=== PATIENT | male | born 1975 | race Caucasian/White ===

== ENCOUNTER 2016-08-09 12:09 | Emergency (ER) | payer MEDICARE, OTHER ==
[~2016-08-09] VITALS: Ht 177.8 cm; Wt 75.6 kg
[~2016-08-09 12:09] MED LIST: ACYCLOVIR800 MG PO; ANUCORT-HC25 MG RE; ANUSOL HC25 MG RE; BACTRIM DS1 TAB OR; BACTRIM DS1 TAB PO; BACTROBAN TOP; CIPROFLOXACN500 MG PO; CORTISPORIN OTI10 M2 AD; DEBROX6.5 % OT; DOXYCYCL HYC100 M4 PO; FIORICET PO; FLEXERIL OR; HYDROXYZ HCL25 MG OR; LORTAB 1010 MG PO; LORTAB5 OR; NAPROSYN375 MG PO; NAPROSYN500 MG OR; NAPROSYN500 MG PO; NAPROXEN375 MG PO; NO HOME MEDS; NO MEDS; POLYTRIM AD; PREPARATION RE; PRILOSEC20 MG OR; SMZ/TMP DS1 TAB PO; TORADOL PO; TYLENOL325 MG OR; ULTRAM50 M1 PO
[2016-08-09] MEDS ORDERED: MOTRIN800 MG PO (12:42)
[2016-08-09 13:16] VITALS: BP 111/75
== END 2016-08-09 13:21 | disposition home or self-care (01) ==
LOC: ED 12:09
DX: M25.541 Pain in joints of right hand (principal); F17.210 Nicotine dependence, cigarettes, uncomplicated; Z86.14 Personal history of Methicillin resistant Staphylococcus aureus infection

== ENCOUNTER 2016-10-28 08:45 | Emergency (ER) | payer MEDICARE, OTHER ==
[~2016-10-28] VITALS: Ht 177.8 cm; Wt 70.0 kg
[~2016-10-28 08:45] MED LIST changes: +MOTRIN800 MG PO
[2016-10-28] MEDS ORDERED: MOTRIN800 MG PO (09:01)
[2016-10-28 09:10] VITALS: BP 123/88
== END 2016-10-28 09:23 | disposition home or self-care (01) ==
LOC: ED 08:45
DX: S43.402A Unspecified sprain of left shoulder joint, initial encounter (principal); X50.0XXA Overexertion from strenuous movement or load, initial encounter; Y93.89 Activity, other specified; Y92.009 Unspecified place in unspecified non-institutional (private) residence as the place of occurrence of the external cause

== ENCOUNTER 2016-12-25 19:47 | Emergency (ER) | payer MEDICARE, OTHER ==
[~2016-12-25] VITALS: Ht 177.8 cm; Wt 79.0 kg
[2016-12-25] MEDS ORDERED: ULTRAM50 MG PO (20:22)
[2016-12-25 20:37] VITALS: BP 131/77
== END 2016-12-25 20:42 | disposition home or self-care (01) ==
LOC: ED 19:47
DX: S76.912A Strain of unspecified muscles, fascia and tendons at thigh level, left thigh, initial encounter (principal); M41.9 Scoliosis, unspecified; F17.210 Nicotine dependence, cigarettes, uncomplicated; X58.XXXA Exposure to other specified factors, initial encounter; Z86.14 Personal history of Methicillin resistant Staphylococcus aureus infection

== ENCOUNTER 2017-03-06 17:00 | Emergency (ER) | payer MEDICARE, OTHER ==
[~2017-03-06] VITALS: Ht 177.8 cm; Wt 68.0 kg
[~2017-03-06 17:00] MED LIST changes: +ULTRAM50 MG PO
[2017-03-06] MEDS ORDERED: ULTRAM50 MG PO (19:40)
[2017-03-06] MEDS ORDERED: ORPHENADRINE100 MG PO (19:40)
[2017-03-06 19:42] VITALS: BP 124/81
== END 2017-03-06 19:30 | disposition home or self-care (01) ==
LOC: ED 17:00
DX: R07.81 Pleurodynia (principal); M41.9 Scoliosis, unspecified; F17.290 Nicotine dependence, other tobacco product, uncomplicated; Z86.14 Personal history of Methicillin resistant Staphylococcus aureus infection

== ENCOUNTER 2017-07-11 11:03 | Emergency (ER) | payer MEDICARE, OTHER ==
[~2017-07-11] VITALS: Ht 177.8 cm; Wt 74.2 kg
[~2017-07-11 11:03] MED LIST changes: +ORPHENADRINE100 MG PO
[2017-07-11 12:13] LABS: INFLUENZA A NONE DETECTED (NONE DETECT); INFLUENZA B NONE DETECTED (NONE DETECT)
[2017-07-11 12:15] VITALS: BP 133/80
[2017-07-11] MEDS ORDERED: AMOXICILLIN500 MG PO (12:16)
== END 2017-07-11 12:15 | disposition home or self-care (01) ==
LOC: ED 11:03
PROVIDERS: Emergency Medicine
DX: J02.0 Streptococcal pharyngitis (principal); F17.210 Nicotine dependence, cigarettes, uncomplicated

== ENCOUNTER 2017-10-17 08:30 | Emergency (ER) | payer MEDICARE, OTHER ==
[~2017-10-17] VITALS: Ht 177.8 cm; Wt 75.0 kg
[~2017-10-17 08:30] MED LIST changes: +AMOXICILLIN500 MG PO
[2017-10-17] MEDS ORDERED: DOXYCYC MONO100 M1 PO (10:22)
[2017-10-17 10:31] VITALS: BP 139/76
== END 2017-10-17 10:37 | disposition home or self-care (01) ==
LOC: ED 08:30
DX: I83.12 Varicose veins of left lower extremity with inflammation (principal); F17.210 Nicotine dependence, cigarettes, uncomplicated

== ENCOUNTER 2018-03-08 15:01 | Emergency (ER) | payer MEDICARE, OTHER ==
[~2018-03-08] VITALS: Ht 177.8 cm; Wt 60.0 kg
[~2018-03-08 15:01] MED LIST changes: +DOXYCYC MONO100 M1 PO
[2018-03-08] MEDS ORDERED: AMOXICILLIN500 MG PO (15:48)
[2018-03-08] MEDS ORDERED: NAPROSYN500 MG PO (15:48)
[2018-03-08 15:55] VITALS: BP 131/76
== END 2018-03-08 15:55 | disposition home or self-care (01) ==
LOC: ED 15:01
DX: S90.122A Contusion of left lesser toe(s) without damage to nail, initial encounter (principal); S90.32XA Contusion of left foot, initial encounter; W22.8XXA Striking against or struck by other objects, initial encounter; Y93.01 Activity, walking, marching and hiking; Y92.009 Unspecified place in unspecified non-institutional (private) residence as the place of occurrence of the external cause

== ENCOUNTER 2018-12-25 15:29 | Emergency (ER) | payer MEDICARE, OTHER ==
[~2018-12-25] VITALS: Ht 177.8 cm; Wt 68.0 kg
[2018-12-25 15:56] LABS: HEMATOCRIT 42.6 % (39.0-50.0); IMMATURE GRANULOCYTES 0.4 % (0.0-5.0); MEAN CELL VOLUME 95.9 fL CALC (80.0-100.0); MEAN CORPUSCULAR HGB 31.5 pG CALC (26.0-32.0); MEAN CORPUSCULAR HGB CONC 32.9 g/L CALC (32.0-36.0); NEUT# 7.92 thou/uL (1.82-7.42); RED BLOOD COUNT 4.44 mill/uL (4.70-6.10); RED CELL DISTRI WIDTH 13.8 % (11.5-15.5)
[2018-12-25 16:08] LABS: ALBUMIN 4.4 g/dL (3.2-5.0); ALKALINE PHOSPHATASE 75 u/l (38-126); ANION GAP 14 (6-22 (CALC)); BILIRUBIN, TOTAL 0.6 mg/dL (0.0-1.4); BUN 9 mg/dL (9-20); BUN/CREATININE RATIO 11 (12-20 (CALC)); CARBON DIOXIDE 26 mmol/l (22-30); CHLORIDE 105 mmol/l (95-108); CREATININE 0.8 mg/dL (0.7-1.3); GFR > 60 ML/MIN (>=60 (CALC)); GFR FOR AFR.AMER. > 60 ML/MIN (>=60 (CALC)); POTASSIUM 4.3 mmol/l (3.5-5.1); SGOT/AST 22 u/l (17-59); SODIUM 141 mmol/l (137-146); TOTAL PROTEIN 7.8 g/dL (6.3-8.2)
[2018-12-25 16:16] LABS: MYOGLOBIN 22 ng/mL (0 - 121)
[2018-12-25 17:30] VITALS: BP 123/88
[2018-12-25] MEDS ORDERED: NAPROXEN500 MG PO (20:42)
== END 2018-12-25 17:40 | disposition home or self-care (01) ==
LOC: ED 15:29
PROVIDERS: Family Medicine
DX: R07.9 Chest pain, unspecified (principal); F17.200 Nicotine dependence, unspecified, uncomplicated

== ENCOUNTER 2018-12-25 19:22 | Emergency (ER) | payer MEDICARE, OTHER ==
[~2018-12-25] VITALS: Ht 177.8 cm; Wt 75.0 kg
[2018-12-25 20:25] LABS: MYOGLOBIN 26 ng/mL (0 - 121)
[2018-12-25] MEDS ORDERED: NAPROXEN500 MG PO (20:42)
[2018-12-25 21:00] VITALS: BP 135/74
== END 2018-12-25 21:00 | disposition home or self-care (01) ==
LOC: ED 19:22
PROVIDERS: Emergency Medicine
DX: R07.89 Other chest pain (principal); F17.200 Nicotine dependence, unspecified, uncomplicated

== ENCOUNTER 2019-03-14 15:19 | Emergency (ER) | payer MEDICARE, MEDICAID ==
[~2019-03-14] VITALS: Ht 177.8 cm; Wt 70.0 kg
[~2019-03-14 15:19] MED LIST changes: +NAPROXEN500 MG PO
[2019-03-14 16:00] LABS: HEMATOCRIT 45.3 % (39.0-50.0); HEMOGLOBIN 14.7 g/dl (14.0-18.0); IMMATURE GRANULOCYTES 0.4 % (0.0-5.0); MEAN CELL VOLUME 95.8 fL CALC (80.0-100.0); MEAN CORPUSCULAR HGB 31.1 pG CALC (26.0-32.0); MEAN CORPUSCULAR HGB CONC 32.5 g/L CALC (32.0-36.0); NEUT# 5.76 thou/uL (1.82-7.42); RED BLOOD COUNT 4.73 mill/uL (4.70-6.10)
[2019-03-14 16:07] LABS: ALBUMIN 4.5 g/dL (3.2-5.0); ALKALINE PHOSPHATASE 86 u/l (38-126); ANION GAP 13 (6-22 (CALC)); BILIRUBIN, TOTAL 0.7 mg/dL (0.0-1.4); BUN 9 mg/dL (9-20); BUN/CREATININE RATIO 11 (12-20 (CALC)); CARBON DIOXIDE 28 mmol/l (22-30); CHLORIDE 102 mmol/l (95-108); CREATININE 0.8 mg/dL (0.7-1.3); GFR > 60 ML/MIN (>=60 (CALC)); GFR FOR AFR.AMER. > 60 ML/MIN (>=60 (CALC)); POTASSIUM 3.9 mmol/l (3.5-5.1); SGOT/AST 33 u/l (17-59); SODIUM 139 mmol/l (137-146); TOTAL PROTEIN 8.5 g/dL (6.3-8.2)
[2019-03-14 16:19] LABS: MYOGLOBIN 23 ng/mL (0 - 121)
[2019-03-14 16:55] VITALS: BP 130/78
== END 2019-03-14 16:55 | disposition home or self-care (01) ==
LOC: ED 15:19
PROVIDERS: Family Medicine
DX: R07.9 Chest pain, unspecified (principal); F17.210 Nicotine dependence, cigarettes, uncomplicated

== ENCOUNTER 2019-04-24 00:01 | Emergency (ER) | payer MEDICARE, MEDICAID ==
[~2019-04-24] VITALS: Ht 177.8 cm; Wt 73.0 kg
[2019-04-24 00:15] VITALS: BP 128/82
== END 2019-04-24 00:23 | disposition left against medical advice (07) ==
LOC: ED 00:01 → LWOBS 00:23
DX: Z01.30 Encounter for examination of blood pressure without abnormal findings (principal); Z53.21 Procedure and treatment not carried out due to patient leaving prior to being seen by health care provider

== ENCOUNTER 2019-05-30 | Emergency (ER) | payer MEDICARE, MEDICAID ==
[2019-05-30] MEDS ORDERED: VOLTAREN - GENE75 MG PO (19:17)
== END 2019-05-30 19:25 | disposition home or self-care (01) ==
DX: M19.032 Primary osteoarthritis, left wrist (principal); S39.012A Strain of muscle, fascia and tendon of lower back, initial encounter; F17.200 Nicotine dependence, unspecified, uncomplicated; X58.XXXA Exposure to other specified factors, initial encounter

== ENCOUNTER 2019-06-10 | Emergency (ER) | payer MEDICARE, MEDICAID ==
[~2019-06-10] MED LIST changes: +VOLTAREN - GENE75 MG PO
[2019-06-10 09:53] LABS: HEMOGLOBIN 15.4 g/dl (14.0-18.0); IMMATURE GRANULOCYTES 0.3 % (0.0-5.0); MEAN CELL VOLUME 94.9 fL CALC (80.0-100.0); MEAN CORPUSCULAR HGB 31.1 pG CALC (26.0-32.0); MEAN CORPUSCULAR HGB CONC 32.8 g/L CALC (32.0-36.0); NEUT# 3.99 thou/uL (1.82-7.42); RED BLOOD COUNT 4.95 mill/uL (4.70-6.10); RED CELL DISTRI WIDTH 13.5 % (11.5-15.5)
[2019-06-10 10:09] LABS: ALBUMIN 4.1 g/dL (3.2-5.0); ALKALINE PHOSPHATASE 58 u/l (38-126); ANION GAP 11 (6-22 (CALC)); BILIRUBIN, TOTAL 0.6 mg/dL (0.0-1.4); BUN 14 mg/dL (9-20); BUN/CREATININE RATIO 20 (12-20 (CALC)); CARBON DIOXIDE 28 mmol/l (22-30); CHLORIDE 103 mmol/l (95-108); CREATININE 0.7 mg/dL (0.7-1.3); GFR > 60 ML/MIN (>=60 (CALC)); GFR FOR AFR.AMER. > 60 ML/MIN (>=60 (CALC)); LIPASE 57 u/l (23-300); SGOT/AST 22 u/l (17-59); SODIUM 137 mmol/l (137-146); TOTAL PROTEIN 7.6 g/dL (6.3-8.2)
[2019-06-10 10:31] LABS: POTASSIUM 4.9 mmol/l (3.5-5.1)
[2019-06-10] MEDS ORDERED: IBUPROFEN600 MG PO (11:27)
== END 2019-06-10 11:38 | disposition home or self-care (01) ==
DX: R07.89 Other chest pain (principal); F17.210 Nicotine dependence, cigarettes, uncomplicated

== ENCOUNTER 2019-07-15 | Emergency (ER) | payer MEDICARE, MEDICAID ==
[~2019-07-15] MED LIST changes: +IBUPROFEN600 MG PO
[2019-07-15] MEDS ORDERED: DICLOFENAC SODI75 MG PO (10:52)
== END 2019-07-15 12:40 | disposition home or self-care (01) ==
DX: M25.532 Pain in left wrist (principal); F17.210 Nicotine dependence, cigarettes, uncomplicated

== ENCOUNTER 2020-06-08 08:01 | Emergency (ER) | payer MEDICARE, MEDICAID ==
[~2020-06-08] VITALS: Ht 177.8 cm; Wt 68.0 kg
[~2020-06-08 08:01] MED LIST changes: +DICLOFENAC SODI75 MG PO
[2020-06-08 08:37] LABS: HEMATOCRIT 46.2 % (39.0-50.0); IMMATURE GRANULOCYTES 0.4 % (0.0-5.0); MEAN CELL VOLUME 96.5 fL CALC (80.0-100.0); MEAN CORPUSCULAR HGB 31.3 pG CALC (26.0-32.0); MEAN CORPUSCULAR HGB CONC 32.5 g/dL CAL (32.0-36.0); NEUT# 4.84 thou/uL (1.82-7.42); RED BLOOD COUNT 4.79 mill/uL (4.70-6.10); RED CELL DISTRI WIDTH 13.6 % (11.5-15.5)
[2020-06-08 09:16] LABS: ALBUMIN 4.1 g/dL (3.2-5.0); ALKALINE PHOSPHATASE 72 u/l (38-126); ANION GAP 10 (6-22 (CALC)); BILIRUBIN, TOTAL 0.6 mg/dL (0.0-1.4); BUN 13 mg/dL (9-20); BUN/CREATININE RATIO 15 (12-20 (CALC)); CARBON DIOXIDE 27 mmol/l (22-30); CHLORIDE 106 mmol/l (95-108); CREATININE 0.9 mg/dL (0.7-1.3); GFR > 60 ML/MIN (>=60 (CALC)); GFR FOR AFR.AMER. > 60 ML/MIN (>=60 (CALC)); LIPASE 63 u/l (23-300); SGOT/AST 19 u/l (17-59); SODIUM 139 mmol/l (137-146); TOTAL PROTEIN 7.2 g/dL (6.3-8.2)
[2020-06-08 09:17] LABS: PROTHROMBIN TIME 9.6 SECONDS (9.0-12.5)
[2020-06-08 09:19] LABS: POTASSIUM 3.9 mmol/l (3.5-5.1)
[2020-06-08] MEDS ORDERED: IBUPROFEN600 MG PO (10:07)
[2020-06-08 10:31] VITALS: BP 127/80
== END 2020-06-08 10:40 | disposition home or self-care (01) ==
LOC: ED 08:01
PROVIDERS: Student in an Organized Health Care Education/Training Program
DX: R07.9 Chest pain, unspecified (principal); F17.210 Nicotine dependence, cigarettes, uncomplicated

== ENCOUNTER 2020-07-10 15:46 | Emergency (ER) | payer MEDICARE, MEDICAID ==
[~2020-07-10] VITALS: Ht 177.8 cm; Wt 68.0 kg
[2020-07-10] MEDS ORDERED: KEFLEX500 MG PO (16:34)
[2020-07-10] MEDS ORDERED: BACTRIM DS1 TAB PO (16:34)
[2020-07-10 16:48] VITALS: BP 127/81
== END 2020-07-10 16:55 | disposition home or self-care (01) ==
LOC: ED 15:46
DX: L02.411 Cutaneous abscess of right axilla (principal); F17.210 Nicotine dependence, cigarettes, uncomplicated; Z86.14 Personal history of Methicillin resistant Staphylococcus aureus infection

== ENCOUNTER 2020-07-17 18:23 | Emergency (ER) | payer MEDICARE, MEDICAID ==
[~2020-07-17] VITALS: Ht 177.8 cm; Wt 75.0 kg
[~2020-07-17 18:23] MED LIST changes: +KEFLEX500 MG PO
[2020-07-17 19:23] VITALS: BP 122/75
== END 2020-07-17 19:48 | disposition home or self-care (01) ==
LOC: ED 18:23
PROC: 0HQ9XZZ Repair Perineum Skin, External Approach (ICD-10-PCS; principal; 2020-07-17)
DX: S30.813A Abrasion of scrotum and testes, initial encounter (principal); F17.210 Nicotine dependence, cigarettes, uncomplicated; X58.XXXA Exposure to other specified factors, initial encounter; Y93.E1 Activity, personal bathing and showering; Y92.002 Bathroom of unspecified non-institutional (private) residence as the place of occurrence of the external cause

== ENCOUNTER 2020-10-09 09:35 | Emergency (ER) | payer MEDICARE, MEDICAID ==
[~2020-10-09] VITALS: Ht 177.8 cm; Wt 68.0 kg
[2020-10-09] MEDS ORDERED: KEFLEX500 MG PO (10:53)
[2020-10-09 11:14] VITALS: BP 144/90
[2020-10-15] MEDS ORDERED: SULFAMETHOXAZOL1 TA1 PO (09:09)
== END 2020-10-09 11:21 | disposition home or self-care (01) ==
LOC: ED 09:35
PROC: 0H95XZZ Drainage of Chest Skin, External Approach (ICD-10-PCS; principal; 2020-10-09)
DX: L72.9 Follicular cyst of the skin and subcutaneous tissue, unspecified (principal); B95.7 Other staphylococcus as the cause of diseases classified elsewhere; F17.210 Nicotine dependence, cigarettes, uncomplicated; Z86.14 Personal history of Methicillin resistant Staphylococcus aureus infection

== ENCOUNTER 2020-10-10 12:34 | Emergency (ER) | payer MEDICARE, MEDICAID ==
[~2020-10-10] VITALS: Ht 177.8 cm; Wt 68.1 kg
[2020-10-10 13:11] VITALS: BP 139/71
--- NOTE | 2020-10-11 10:07 | NUR ---
Left message with patient about need to change antibiotics, from keflex to bactrim ds bid x 10 days, new order ok'd by .
[2020-10-15] MEDS ORDERED: SULFAMETHOXAZOL1 TA1 PO (09:09)
== END 2020-10-10 13:17 | disposition home or self-care (01) ==
LOC: ED 12:34
DX: Z48.01 Encounter for change or removal of surgical wound dressing (principal)

== ENCOUNTER 2020-10-11 11:21 | Emergency (ER) | payer MEDICARE, MEDICAID ==
[~2020-10-11] VITALS: Ht 177.8 cm; Wt 67.7 kg
[2020-10-11 12:58] VITALS: BP 110/70
[2020-10-15] MEDS ORDERED: SULFAMETHOXAZOL1 TA1 PO (09:09)
== END 2020-10-11 12:59 | disposition home or self-care (01) ==
LOC: ED 11:21
DX: Z48.01 Encounter for change or removal of surgical wound dressing (principal); F17.210 Nicotine dependence, cigarettes, uncomplicated; Z86.14 Personal history of Methicillin resistant Staphylococcus aureus infection

== ENCOUNTER 2020-10-13 10:38 | Emergency (ER) | payer MEDICARE, MEDICAID ==
[~2020-10-13] VITALS: Ht 177.8 cm; Wt 73.0 kg
[2020-10-13 11:07] VITALS: BP 137/81
[2020-10-15] MEDS ORDERED: SULFAMETHOXAZOL1 TA1 PO (09:09)
== END 2020-10-13 11:10 | disposition home or self-care (01) ==
LOC: ED 10:38
DX: Z48.01 Encounter for change or removal of surgical wound dressing (principal); F17.200 Nicotine dependence, unspecified, uncomplicated; Z86.14 Personal history of Methicillin resistant Staphylococcus aureus infection

== ENCOUNTER 2020-10-18 20:09 | Emergency (ER) | payer MEDICARE, MEDICAID ==
[~2020-10-18] VITALS: Ht 177.8 cm; Wt 80.0 kg
[~2020-10-18 20:09] MED LIST changes: +SULFAMETHOXAZOL1 TA1 PO
[2020-10-18 20:34] VITALS: BP 127/83
== END 2020-10-18 20:42 | disposition home or self-care (01) ==
LOC: ED 20:09
DX: Z48.01 Encounter for change or removal of surgical wound dressing (principal); F17.210 Nicotine dependence, cigarettes, uncomplicated; Z86.14 Personal history of Methicillin resistant Staphylococcus aureus infection

== ENCOUNTER 2021-09-24 12:43 | Emergency (ER) | payer MEDICARE, MEDICAID ==
[~2021-09-24] VITALS: Ht 177.8 cm; Wt 67.5 kg
[2021-09-24 14:02] VITALS: BP 141/96
[2021-09-24 16:23] LABS: HEMATOCRIT 47.2 % (39.0-50.0); HEMOGLOBIN 15.6 g/dl (14.0-18.0); IMMATURE GRANULOCYTES 0.6 % (0.0-5.0); MEAN CELL VOLUME 95.4 fL CALC (80.0-100.0); MEAN CORPUSCULAR HGB 31.5 pG CALC (26.0-32.0); MEAN CORPUSCULAR HGB CONC 33.1 g/dL CAL (32.0-36.0); NEUT# 7.12 thou/uL (1.82-7.42); RED BLOOD COUNT 4.95 mill/uL (4.70-6.10); RED CELL DISTRI WIDTH 13.3 % (11.5-15.5)
[2021-09-24 16:40] LABS: ANION GAP 13 (6-22 (CALC)); BUN 9 mg/dL (9-20); BUN/CREATININE RATIO 12 (12-20 (CALC)); CARBON DIOXIDE 28 mmol/l (22-30); CHLORIDE 102 mmol/l (95-108); CREATININE 0.8 mg/dL (0.7-1.3); GFR > 60 ML/MIN (>=60 (CALC)); GFR FOR AFR.AMER. > 60 ML/MIN (>=60 (CALC)); SODIUM 139 mmol/l (137-146)
[2021-09-24 18:00] VITALS: BP 133/86
[2021-09-24 18:30] VITALS: BP 152/90
[2021-09-24] MEDS ORDERED: VENTOLIN HFA108 MCG IN (18:34)
[2021-09-24] MEDS ORDERED: NAPROXEN500 MG PO (18:34)
[2021-09-24] MEDS ORDERED: FLEXERIL5 M1 PO (18:34)
[2021-09-24 19:02] VITALS: BP 152/90
== END 2021-09-24 19:12 | disposition home or self-care (01) ==
LOC: ED 12:43
PROVIDERS: Nurse Practitioner
DX: R05.9 Cough, unspecified (principal); R07.81 Pleurodynia; F17.200 Nicotine dependence, unspecified, uncomplicated; Z20.822 Contact with and (suspected) exposure to COVID-19
CPT/HCPCS: Q9967

== ENCOUNTER 2022-06-08 08:11 | Day surgery (SDC) | payer MEDICARE, MEDICAID ==
[~2022-06-08] VITALS: Ht 177.8 cm; Wt 67.6 kg
[~2022-06-08 08:11] MED LIST changes: +BACLOFEN20 MG PO; +FLEXERIL5 M1 PO; +MELOXICAM7.5 MG PO; +OMEPRAZOLE DR40 MG PO; +TRAZODONE50 MG PO; +VENTOLIN HFA108 MCG IN
[2022-06-08] MEDS ORDERED: ALBUTEROL SUL0.083 % IN (08:33)
[2022-06-08 10:58] VITALS: BP 148/97
== END 2022-06-08 11:10 | disposition home or self-care (01) ==
LOC: ENDO 08:11 → ORM 09:30 → ENDO 11:10
PROVIDERS: ATTEND Surgery
PROC: 0DB98ZX Excision of Duodenum, Via Natural or Artificial Opening Endoscopic, Diagnostic (ICD-10-PCS; principal; 2022-06-08)
PROC: 0DB48ZX Excision of Esophagogastric Junction, Via Natural or Artificial Opening Endoscopic, Diagnostic (ICD-10-PCS; 2022-06-08)
DX: K21.00 Gastro-esophageal reflux disease with esophagitis, without bleeding (principal); K31.7 Polyp of stomach and duodenum; F17.210 Nicotine dependence, cigarettes, uncomplicated

== ENCOUNTER 2022-08-31 11:41 | Emergency (ER) | payer MEDICARE, MEDICAID ==
[2022-08-31] VITALS (9 sets, daily range): BP systolic 117–144; BP diastolic 76–89
[~2022-08-31] VITALS: Ht 177.8 cm; Wt 71.6 kg
[~2022-08-31 11:41] MED LIST changes: +ALBUTEROL SUL0.083 % IN
[2022-08-31 12:46] LABS: BASO% 0.4 % (0-3); EOS% 4.2 % (0-8); HEMATOCRIT 49.7 % (39.0-50.0); IMMATURE GRANULOCYTES 0.3 % (0.0-5.0); LYMPH% 23.8 % (15-41); MEAN CELL VOLUME 93.4 fL CALC (80.0-100.0); MEAN CORPUSCULAR HGB 30.1 pG CALC (26.0-32.0); MEAN CORPUSCULAR HGB CONC 32.2 g/dL CAL (32.0-36.0); MONO% 7.8 % (2-13); NEUT# 4.57 thou/uL (1.82-7.42); NEUT% 63.5 % (42-76); RED BLOOD COUNT 5.32 mill/uL (4.70-6.10); RED CELL DISTRI WIDTH 13.5 % (11.5-15.5)
[2022-08-31 13:04] LABS: ALBUMIN 4.1 g/dL (3.2-5.0); ALKALINE PHOSPHATASE 80 u/l (38-126); ANION GAP 11 (6-22 (CALC)); BILIRUBIN, TOTAL 0.9 mg/dL (0.2-1.3); BUN 13 mg/dL (9-20); BUN/CREATININE RATIO 17 (12-20 (CALC)); CARBON DIOXIDE 26 mmol/l (22-30); CHLORIDE 105 mmol/l (95-108); CREATININE 0.8 mg/dL (0.7-1.3); GFR FOR AFR.AMER. > 60 ML/MIN (>=60 (CALC)); GFR OTHER RACES > 60 ML/MIN (>=60 (CALC)); POTASSIUM 4.5 mmol/l (3.5-5.1); SGOT/AST 25 u/l (17-59); SODIUM 137 mmol/l (137-146)
[2022-08-31] MEDS ORDERED: CARAFATE1 GM PO (15:21)
== END 2022-08-31 15:42 | disposition home or self-care (01) ==
LOC: ED 11:41
PROVIDERS: Family Medicine
DX: K21.9 Gastro-esophageal reflux disease without esophagitis (principal); I10 Essential (primary) hypertension; E78.5 Hyperlipidemia, unspecified; F17.200 Nicotine dependence, unspecified, uncomplicated; R07.9 Chest pain, unspecified

== ENCOUNTER 2024-04-04 13:16 | Emergency (ER) | payer MEDICARE, MEDICAID ==
[~2024-04-04] VITALS: Ht 177.8 cm; Wt 63.5 kg
[2024-04-04] VITALS (15 sets, daily range): BP systolic 97–129; BP diastolic 58–82
[~2024-04-04 13:16] MED LIST changes: +AMOX/K CLAV875 M1 PO; +CARAFATE1 GM PO; +TAM75CAP PO
[2024-04-04] MEDS ORDERED: ALUM & MAG HYDROX-SIMETHICONE 30 ML PO ONE (13:40)
[2024-04-04] MEDS ORDERED: NITROGLYCERIN 0.4 MG/TAB SL ONE (13:40)
[2024-04-04 14:02] LABS: BASO% 0.3 % (0-3); EOS% 1.8 % (0-8); HEMATOCRIT 43.8 % (39.0-50.0); HEMOGLOBIN 14.6 g/dl (14.0-18.0); IMMATURE GRANULOCYTES 0.2 % (0.0-5.0); LYMPH% 23.6 % (15-41); MEAN CELL VOLUME 94.8 fL CALC (80.0-100.0); MEAN CORPUSCULAR HGB 31.6 pG CALC (26.0-32.0); MEAN CORPUSCULAR HGB CONC 33.3 g/dL CAL (32.0-36.0); MONO% 6.8 % (2-13); NEUT# 6.74 thou/uL (1.82-7.42); NEUT% 67.3 % (42-76); RED BLOOD COUNT 4.62 mill/uL (4.70-6.10); RED CELL DISTRI WIDTH 13.7 % (11.5-15.5)
[2024-04-04 14:13] LABS: ALBUMIN 4.1 g/dL (3.2-5.0); ALKALINE PHOSPHATASE 60 u/l (38-126); ANION GAP 13 (6-22 (CALC)); BUN 12 mg/dL (9-20); BUN/CREATININE RATIO 15 (12-20 (CALC)); CARBON DIOXIDE 25 mmol/l (22-30); CHLORIDE 101 mmol/l (95-108); CREATININE 0.8 mg/dL (0.7-1.3); ESTIMATED GFR 108 ML/MIN (>=90 (CALC)); POTASSIUM 3.9 mmol/l (3.5-5.1); SGOT/AST 27 u/l (17-59); SODIUM 135 mmol/l (137-146); TOTAL PROTEIN 7.4 g/dL (6.3-8.2)
[2024-04-04 14:35] LABS: BILIRUBIN, TOTAL 0.9 mg/dL (0.2-1.3)
[2024-04-04] MEDS ORDERED: ISOVUE-300 (Iopamidol) 100 ML SDV IV ONE (16:50)
== END 2024-04-04 18:59 | disposition left against medical advice (07) ==
LOC: ED 13:16
PROVIDERS: Family Medicine
DX: R07.9 Chest pain, unspecified (principal); I10 Essential (primary) hypertension; E78.5 Hyperlipidemia, unspecified; K21.9 Gastro-esophageal reflux disease without esophagitis; F17.200 Nicotine dependence, unspecified, uncomplicated; Z86.14 Personal history of Methicillin resistant Staphylococcus aureus infection; Z53.29 Procedure and treatment not carried out because of patient's decision for other reasons
CPT/HCPCS: Q9967